=== PATIENT | male | born 1995 | race Caucasian/White ===

== ENCOUNTER 2017-03-20 13:35 | Emergency (ER) | payer OTHER ==
[~2017-03-20] VITALS: Ht 180.3 cm; Wt 88.5 kg
[2017-03-20 13:35] VITALS: BP 129/65
[2017-03-20] MEDS ORDERED: TRAZ50TA4 (13:44)
[2017-03-20] MEDS ORDERED: FLUO20CA9 (13:44)
[2017-03-20] MEDS ORDERED: HYDR-4274 (13:44)
== END 2017-03-20 15:25 | disposition left against medical advice (07) ==
LOC: M ED 15:18
DX: Z53.29 Procedure and treatment not carried out because of patient's decision for other reasons (principal)

== ENCOUNTER 2018-03-21 07:58 | Emergency (ER) | payer OTHER ==
[2018-03-21 09:26] LABS: BASO # 0.1 10^3/uL (0.0-0.2); BASO % 1.5 % (0.0-1.0); EOS # 0.6 10^3/uL (0.0-0.50); EOS % 8.5 % (0.0-3.0); HEMATOCRIT 43.3 % (42.0-52.0); HEMOGLOBIN 14.8 g/dl (13.5-17.5); IMMATURE GRANULOCYTE % 0.3 % (0-3.0); LYMPH # 2.4 10^3/uL (1.5-6.5); MEAN CORPUSCULAR HEMOGLOBIN 30.5 pg (27.0-33.0); MEAN CORPUSCULAR HGB CONC 34.2 g/dl (32.0-36.5); MEAN CORPUSCULAR VOLUME 89.3 fl (80.0-96.0); MONO # 0.7 10^3/uL (0.0-0.8); MONO % 10.1 % (0.0-5.0); NEUTROPHILS % 44.6 % (36.0-66.0); PLATELET COUNT, AUTOMATED 198 10^3/uL (150-450); RED BLOOD COUNT 4.85 10^6/uL (4.30-6.10); RED CELL DISTRIBUTION WIDTH 12.6 % (11.5-14.5); WHITE BLOOD COUNT 6.7 10^3/uL (4.0-10.0)
[2018-03-21] MEDS: MECLIZINE 25 MG TABLET PO (09:29)
[2018-03-21] MEDS: ONDANSETRON 4MG/2ML VIAL (J2405) IV (09:29)
[2018-03-21] MEDS: NS 1,000 ML IV (09:29)
[2018-03-21 09:39] LABS: ANION GAP 8 MEQ/L (8-16); BLOOD UREA NITROGEN 15 MG/DL (7-18); CALCIUM LEVEL 9.1 MG/DL (8.5-10.1); CARBON DIOXIDE LEVEL 27 MEQ/L (21-32); CHLORIDE LEVEL 106 MEQ/L (98-107); CREATININE FOR GFR 1.13 MG/DL (0.70-1.30); GLOMERULAR FILTRATION RATE > 60.0 (>60); GLUCOSE, FASTING 98 MG/DL (70-100); POTASSIUM SERUM 3.7 MEQ/L (3.5-5.1); SODIUM LEVEL 141 MEQ/L (136-145)
== END 2018-03-21 11:02 | disposition home or self-care (01) ==
LOC: M ED 07:58
DX: R42 Dizziness and giddiness (principal); Z72.0 Tobacco use
CPT/HCPCS: J2405